=== PATIENT | male | born 1960 | race Two or more races ===

== ENCOUNTER 2016-12-31 13:02 | Inpatient (IN) | payer OTHER ==
[~2016-12-31] VITALS: Ht 175.3 cm; Wt 135.3 kg
[2016-12-31 15:31] LABS: BASOPHIL % 0.2 % (0-2); PLATELET COUNT 284 x10^3mcL (130-400)
[2016-12-31 15:32] LABS: RED CELL DISTRIBUTION WIDTH 15.5 % (11.5-14.5)
[2016-12-31 15:47] LABS: CALCIUM 8.9 mg/dL (8.5-10.1); CARBON DIOXIDE 25.4 mmol/L (21-32); CHLORIDE SERUM 104 mmol/L (98-107); CREATININE SERUM 1.3 mg/dL (0.7-1.3); GFR1 > 60 mL/min; GLUCOSE SERUM 129 mg/dL (74-106); POTASSIUM SERUM 4.4 mmol/L (3.5-5.1); SODIUM SERUM 140 mmol/L (136-145)
[2016-12-31 15:51] LABS: ALKALINE PHOSPHATASE 115 U/L (46-116); ALT/SGPT 11 U/L (16-63); AST/SGOT 17 U/L (15-37); BILIRUBIN TOTAL 0.28 mg/dL (0.20-1.00)
[2016-12-31] MEDS ORDERED: GABAPENTIN300 M4 PO (16:50)
[2016-12-31] MEDS ORDERED: DILTIAZEM HCL60 M1 PO (16:50)
[2016-12-31] MEDS ORDERED: AFREZZA1 EAC1 SQ (16:50)
[2016-12-31] MEDS ORDERED: ADULT LOW DOSE81 MG PO (16:50)
[2016-12-31] MEDS ORDERED: LASIX40 MG PO (16:51)
[2016-12-31] MEDS ORDERED: ATORVASTATIN CA80 M1 PO (16:51)
[2016-12-31] MEDS ORDERED: SPIRONOLACTONE (16:51)
[2016-12-31] MEDS ORDERED: ENALAPRIL MALEAT5 MG PO (16:51)
[2016-12-31] MEDS ORDERED: PROAIR HFA8.5 GM IH (16:52)
[2016-12-31] MEDS ORDERED: TRAMADOL HCL50 MG PO (16:52)
[2016-12-31] MEDS ORDERED: SYMBICORT1 AE2 INH (16:52)
[2016-12-31 16:53] LABS: MAGNESIUM 1.9 mg/dL (1.8-2.4); PHOSPHOROUS 2.8 mg/dL (2.5-4.9)
[2016-12-31 17:03] LABS: T3 TOTAL 0.88 ng/mL
[2016-12-31 17:05] LABS: FREE T4 0.99 ng/dL (0.76-1.46); FREE THYROXINE INDEX 2.1 ug/dL (1.4-4.5); T4(THYROXINE) 6.5 ug/dL (4.7-13.3)
[2016-12-31] MEDS ORDERED: TRAZODONE100 MG PO (17:42)
[2016-12-31] MEDS ORDERED: HCTZ/SPIRONOLAC1 TAB PO (17:42)
[2016-12-31 18:13] VITALS: BP 164/71
[2016-12-31 19:45] VITALS: BP 142/51
[2016-12-31 20:00] VITALS: BP 164/71
[2017-01-01 05:31] VITALS: BP 146/55
[2017-01-01 06:38] LABS: BASOPHIL % 0.3 % (0-2); PLATELET COUNT 247 x10^3mcL (130-400)
[2017-01-01 06:42] LABS: RED CELL DISTRIBUTION WIDTH 15.9 % (11.5-14.5)
[2017-01-01 06:58] LABS: CALCIUM 8.6 mg/dL (8.5-10.1); CARBON DIOXIDE 26.7 mmol/L (21-32); CHLORIDE SERUM 102 mmol/L (98-107); CREATININE SERUM 1.3 mg/dL (0.7-1.3); GFR1 > 60 mL/min; GLUCOSE SERUM 304 mg/dL (74-106); MAGNESIUM 1.9 mg/dL (1.8-2.4); PHOSPHOROUS 3.8 mg/dL (2.5-4.9); SODIUM SERUM 139 mmol/L (136-145)
[2017-01-01 09:35] VITALS: BP 160/76
[2017-01-01 11:48] LABS: microscopic required? NO
[2017-01-01 13:34] VITALS: BP 107/35
[2017-01-01 14:32] LABS: urine erythrocyte NEGATIVE (NEGATIVE)
[2017-01-01 14:46] LABS: AMPHETAMINE QUAL UR NONE DETECTED (NEG <=1000)
[2017-01-01 17:42] VITALS: BP 140/57
[2017-01-01 19:30] VITALS: BP 128/53
[2017-01-02 07:20] LABS: BASOPHIL % 0.1 % (0-2); PLATELET COUNT 281 x10^3mcL (130-400)
[2017-01-02 07:21] LABS: RED CELL DISTRIBUTION WIDTH 16.1 % (11.5-14.5)
[2017-01-02 09:20] VITALS: BP 136/61
[2017-01-02 09:21] LABS: CALCIUM 8.9 mg/dL (8.5-10.1); CARBON DIOXIDE 27.8 mmol/L (21-32)
[2017-01-02 13:57] VITALS: BP 149/65
[2017-01-02 15:07] VITALS: BP 149/65
[2017-01-02 18:38] VITALS: BP 107/54
[2017-01-02 21:09] VITALS: BP 122/53
[2017-01-03 05:07] VITALS: BP 121/57
[2017-01-03 06:48] LABS: BASOPHIL % 0.3 % (0-2); PLATELET COUNT 285 x10^3mcL (130-400)
[2017-01-03 06:52] LABS: RED CELL DISTRIBUTION WIDTH 15.9 % (11.5-14.5)
[2017-01-03 07:09] LABS: CALCIUM 8.9 mg/dL (8.5-10.1); CARBON DIOXIDE 28.4 mmol/L (21-32); CREATININE SERUM 1.9 mg/dL (0.7-1.3); POTASSIUM SERUM 4.4 mmol/L (3.5-5.1)
[2017-01-03 10:03] VITALS: BP 122/45
[2017-01-03 13:40] VITALS: BP 138/53
[2017-01-03 17:16] VITALS: BP 116/48
[2017-01-03 21:55] VITALS: BP 129/39
[2017-01-04 05:53] VITALS: BP 117/54
[2017-01-04 06:40] LABS: BILIRUBIN TOTAL 0.2 mg/dL (0.20-1.00); CALCIUM 8.8 mg/dL (8.5-10.1); CARBON DIOXIDE 28.6 mmol/L (21-32); CREATININE SERUM 1.5 mg/dL (0.7-1.3); POTASSIUM SERUM 4.2 mmol/L (3.5-5.1); TOTAL PROTEIN, SERUM 7.4 g/dL (6.4-8.2)
[2017-01-04 06:42] LABS: ALBUMIN 2.5 g/dL (3.4-5.0)
[2017-01-04 06:49] LABS: BASOPHIL % 0.3 % (0-2); PLATELET COUNT 291 x10^3mcL (130-400)
[2017-01-04 06:54] LABS: RED CELL DISTRIBUTION WIDTH 16.1 % (11.5-14.5)
[2017-01-04 09:53] VITALS: BP 122/46
[2017-01-04 15:49] VITALS: BP 122/46
[2017-01-04] MEDS ORDERED: LEVOFLOXACIN500 M1 PO (15:56)
[2017-01-04] MEDS ORDERED: LAC PO (15:57)
== END 2017-01-04 16:45 | disposition home or self-care (01) | DRG 622 ==
LOC: ED 13:02 → DU 16:32 → MU 01-04 10:36
PROVIDERS: Emergency Medicine Emergency Medical Services; Family Medicine; ADMIT Student in an Organized Health Care Education/Training Program
PROC: 0JBQ0ZZ Excision of Right Foot Subcutaneous Tissue and Fascia, Open Approach (ICD-10-PCS; principal; 2017-01-02)
DX: E11.621 Type 2 diabetes mellitus with foot ulcer (principal); E43 Unspecified severe protein-calorie malnutrition; Z68.41 Body mass index [BMI] 40.0-44.9, adult; D68.69 Other thrombophilia; L03.115 Cellulitis of right lower limb; N17.0 Acute kidney failure with tubular necrosis; L97.519 Non-pressure chronic ulcer of other part of right foot with unspecified severity; I10 Essential (primary) hypertension; E11.51 Type 2 diabetes mellitus with diabetic peripheral angiopathy without gangrene; E11.65 Type 2 diabetes mellitus with hyperglycemia; E11.42 Type 2 diabetes mellitus with diabetic polyneuropathy; I87.2 Venous insufficiency (chronic) (peripheral); G47.00 Insomnia, unspecified; F10.21 Alcohol dependence, in remission; E66.01 Morbid (severe) obesity due to excess calories; Z89.021 Acquired absence of right finger(s); Z89.422 Acquired absence of other left toe(s); Z79.84 Long term (current) use of oral hypoglycemic drugs
CPT/HCPCS: 82962; 83880; 84439; B4164; J1815; J1940; J1956; J2543; J7030; J7042; J7050; J7620; J7626; Q0092